=== PATIENT | female | born 1995 | race Caucasian/White ===

== ENCOUNTER 2020-06-17 20:51 | Inpatient (IN) | payer MEDICAID ==
[~2020-06-17] VITALS: Ht 157.5 cm; Wt 104.8 kg
[2020-06-17] MEDS ORDERED: PREN1TAB78 PO (21:54)
[2020-06-17] MEDS ORDERED: DEXT 5%/LR + PITOCIN 20UNITS/L 1,000 ML IV SCH (22:00)
[2020-06-17] MEDS ORDERED: BUTORPHANOL TARTRATE 2 MG/ML VIAL IV PRN (22:00)
[2020-06-17] MEDS ORDERED: LIDOCAINE HCL 1% 20ML VIAL (Pyxis) INJ INFIL SCH (22:00)
[2020-06-17] MEDS ORDERED: NALOXONE HCL 0.4 MG/ML 1ML VIAL IM PRN (22:00)
[2020-06-17] MEDS ORDERED: METHYLERGONOVINE MALEATE 0.2 MG/ML IM PRN (22:00)
[2020-06-17] MEDS: LACTATED RINGERS 1,000 ML IV SCH ×2 (22:25→23:33)
[2020-06-17] MEDS ORDERED: PNEUMOCOCCAL 23-VAL P-SAC VAC 0.5 ML IM ONE (22:40)
[2020-06-17 22:41] LABS: BASOPHILS % 0.2 % (0.0-2.0); EOSINOPHILS % 0.2 % (0.0-5.0); HEMATOCRIT. 33.9 % (36.0-48.0); HEMOGLOBIN. 11.2 g/dL (12.0-16.0); LYMPHOCYTES % 11.8 % (20.0-50.0); MEAN CORPUSCULAR HEMOGLOBIN 25.5 pg (28.0-32.0); MEAN CORPUSCULAR VOLUME 77.6 fL (81.0-99.0); MEAN PLATELET VOLUME 10.1 fl (7.4-10.4); MONOCYTES % 4.7 % (2.0-8.0); NEUTROPHILS % 83.1 % (40.0-76.0); PLATELET 247 x1000/uL (130-400); RED BLOOD CELL COUNT 4.37 mill/uL (4.2-5.4); RED CELL DISTRIBUTION WIDTH 15.7 % (11.6-14.6)
[2020-06-17] MEDS ORDERED: ROPIVACAINE HCL/PF EPIDURAL 200 ML EPI ONE (22:50)
[2020-06-17 22:54] LABS: CLARITY URINE CLOUDY (CLEAR); COLOR URINE YELLOW (YELLOW); KETONES URINE NEGATIVE (NEGATIVE); LEUKOCYTE ESTERASE URINE 1+ (NEGATIVE); NITRITE URINE NEGATIVE (NEGATIVE); OCCULT BLOOD URINE TRACE (NEGATIVE); PROTEIN URINE TRACE (NEGATIVE); SPECIFIC GRAVITY URINE 1.034 (1.005-1.030)
[2020-06-17] MEDS ORDERED: PENICILLIN G POTASSIUM 5 MMU in DEXT 5% WATER 100 ML IV SCH (23:00)
[2020-06-17 23:02] LABS: INR 0.9; PARTIAL THROMBOPLASTIN TIME 25.9 sec (23.4-31.0); PROTHROMBIN TIME 9.7 sec (9.6-11.0)
[2020-06-17 23:15] LABS: METHADONE URINE SCREEN NEGATIVE (NEGATIVE)
[2020-06-17 23:16] LABS: *AMPHETAMINES SCREEN URINE NEGATIVE (NEGATIVE); *BARBITURATES SCREEN URINE NEGATIVE (NEGATIVE); *BENZODIAZEPINES SCREEN URINE NEGATIVE (NEGATIVE); *COCAINE SCREEN URINE NEGATIVE (NEGATIVE); CANNABINOID URINE SCREEN NEGATIVE (NEGATIVE); OPIATES URINE SCREEN NEGATIVE (NEGATIVE); PHENCYCLIDINE URINE SCREEN NEGATIVE (NEGATIVE)
[2020-06-18] MEDS ORDERED: ACETAMINOPHEN WITH CODEINE 300/30MG TABLET PO PRN (02:15)
[2020-06-18] MEDS ORDERED: GLYCERIN/WITCH HAZEL LEAF MEDICATED PAD TOP PRN (02:15)
[2020-06-18] MEDS ORDERED: HEMORRHOIDAL SUPP PR PRN (02:15)
[2020-06-18] MEDS ORDERED: BENZOCAINE/LANOLIN/ALOE VERA SPRAY TOP PRN (02:15)
[2020-06-18] MEDS ORDERED: BISACODYL 10MG SUPP PR PRN (02:15)
[2020-06-18] MEDS ORDERED: DIPHENHYDRAMINE 25MG CAPSULE PO PRN (02:15)
[2020-06-18] MEDS ORDERED: IBUPROFEN 400MG TABLET PO PRN (02:15)
[2020-06-18] MEDS ORDERED: DEXT 5%/LR + PITOCIN 20UNITS/L 1,000 ML IV SCH (02:15)
[2020-06-18] MEDS ORDERED: LANOLIN OINT 7GM TUBE TOP PRN (02:15)
[2020-06-18] MEDS ORDERED: PENICILLIN G POTASSIUM 2.5 MMU in DEXTROSE 5% WATER 50 ML IV SCH (03:00)
[2020-06-18 04:20] VITALS: BP 108/55
[2020-06-18] MEDS ORDERED: TETANUS, DIPHTHERIA, PERTUSSIS VAC/PF 0.5ML (>7YR OLD) IM ONE (07:30)
[2020-06-18] MEDS: PRENATAL VIT/FE FUMARATE/FA TABLET PO SCH (09:12)
[2020-06-18] MEDS: IBUPROFEN 800MG TABLET PO PRN (09:12)
[2020-06-18] MEDS: SIMETHICONE 80MG TABLET CHEW PO SCH ×3 (09:13→22:49)
[2020-06-18 09:15] VITALS: BP 120/71
[2020-06-18 12:23] LABS: HEPATITIS B SURFACE ANTIGEN NEGATIVE
[2020-06-18 16:00] VITALS: BP 117/69
[2020-06-18] MEDS: MAGNESIUM/ALUMINUM HYDROXIDE/SIMETHICONE 30ML UDC PO SCH ×2 (18:51→22:48)
[2020-06-18 20:00] VITALS: BP 110/67
[2020-06-18] MEDS: DOCUSATE SODIUM 100MG CAPSULE PO SCH (22:49)
[2020-06-19] VITALS: BP 114/70
[2020-06-19 04:00] VITALS: BP 125/78
[2020-06-19 06:21] LABS: BASOPHILS % 0.6 % (0.0-2.0); EOSINOPHILS % 1.7 % (0.0-5.0); HEMATOCRIT. 30.4 % (36.0-48.0); HEMOGLOBIN. 9.9 g/dL (12.0-16.0); LYMPHOCYTES % 28.8 % (20.0-50.0); MEAN CORPUSCULAR HEMOGLOBIN 25.5 pg (28.0-32.0); MEAN CORPUSCULAR VOLUME 78.1 fL (81.0-99.0); MEAN PLATELET VOLUME 9.9 fl (7.4-10.4); MONOCYTES % 5.4 % (2.0-8.0); NEUTROPHILS % 63.5 % (40.0-76.0); PLATELET 219 x1000/uL (130-400); RED CELL DISTRIBUTION WIDTH 15.6 % (11.6-14.6)
[2020-06-19 08:00] VITALS: BP 109/60
[2020-06-19] MEDS: IBUPROFEN 800MG TABLET PO PRN (09:57)
[2020-06-19] MEDS: MAGNESIUM/ALUMINUM HYDROXIDE/SIMETHICONE 30ML UDC PO SCH ×3 (09:58→22:24)
[2020-06-19] MEDS: FERROUS SULFATE 325MG TABLET PO SCH ×2 (09:58→16:31)
[2020-06-19] MEDS: PRENATAL VIT/FE FUMARATE/FA TABLET PO SCH (09:58)
[2020-06-19 16:00] VITALS: BP 113/66
[2020-06-19] MEDS: SIMETHICONE 80MG TABLET CHEW PO SCH ×2 (16:32→22:25)
[2020-06-19 22:00] VITALS: BP 120/69
[2020-06-19] MEDS: DOCUSATE SODIUM 100MG CAPSULE PO SCH (22:26)
[2020-06-20 05:40] VITALS: BP 107/63
[2020-06-20 08:00] VITALS: BP 120/72
== END 2020-06-21 17:30 | disposition home or self-care (01) | DRG 560 ==
LOC: 8 EST LDRP 20:51 → OBSVTOIN 20:51 → 8EST 06-18 04:20
PROVIDERS: ADMIT Obstetrics & Gynecology; ATTEND Obstetrics & Gynecology
PROC: 10E0XZZ Delivery of Products of Conception, External Approach (ICD-10-PCS; principal; 2020-06-18)
PROC: 0KQM0ZZ Repair Perineum Muscle, Open Approach (ICD-10-PCS; 2020-06-18)
PROC: 3E0R3BZ Introduction of Anesthetic Agent into Spinal Canal, Percutaneous Approach (ICD-10-PCS; 2020-06-18)
PROC: 00HU33Z Insertion of Infusion Device into Spinal Canal, Percutaneous Approach (ICD-10-PCS; 2020-06-18)
DX: O77.0 Labor and delivery complicated by meconium in amniotic fluid (principal); O70.1 Second degree perineal laceration during delivery; Z3A.39 39 weeks gestation of pregnancy; Z37.0 Single live birth
CPT/HCPCS: 36415; 76805; 80305; 81003; 83735; 85025; 86592; 86703; 86762; 86850; 86900; 87340; 90732; 99281; G0378; J2540; J2590; J2795; J3490; J7060; J7120; A4315